=== PATIENT | female | born 1945 | race Caucasian/White ===

== ENCOUNTER 2016-08-17 11:32 | Emergency (ER) | payer MEDICARE, OTHER ==
--- NOTE | 2016-08-18 13:03 | ER PHYSICIAN DOCUMENTATION ---
Physician Documentation [facility] Name:Hina Jones Age:70 yrs Sex:Female :1945 Arrival Date:08/17/2016 Time:11:32 Bed2 Private MD:Dom Dugan ED, Chris Disposition: 08/17 11:46 Chart complete. cd Disposition: 08/17/16 11:46 Discharged to Home/Self Care. Impression: Abrasion. - Condition is Good. - Discharge Instructions: ABRASION. - Medical Reconciliation form form. - Follow up: Dom Dugan MD; When: As needed; Reason: Worsening of condition. - Problem is new. - Symptoms are resolved. HPI: 11:35 This 70 yrs old Female presents to ER via Private Vehicle with complaints of cd Right Elbow Abrasion. 11:35 The patient or guardian complains of an abrasion. The complaints affect the right cd elbow. Context: The problem was sustained at home, resulted from previous small hematoma was abraded and drained. No signs of infection.. Historical: - Allergies: No known drug Allergies; - Home Meds: 1. anti anxiety med 2. Ambien Oral - PMHx: ANXIETY; - PSHx: None; - Tetanus: < 10 years. - Ebola Screening: : Patient denies exposure to infectious person. Patient denies travel to an Ebola-affected area in the 21 days before illness onset. . - Social history: Smoking status: Patient uses tobacco products, current every day smoker. Patient/guardian denies using alcohol, marijuana. ROS: 11:53 MS/extremity: Positive for abrasion. cd 11:53 All other systems are negative. Exam: 11:53 Constitutional: The patient appears alert, awake. cd 11:53 Musculoskeletal/extremity: Extremities: grossly normal except: noted in the right elbow: abrasion, ROM: no acute changes, Circulation is intact in all extremities. Sensation intact. Vital Signs: 11:54 BP 155 / 86; Pulse 89; Pulse Ox 92% ; Pain 0/10; st MDM: 11:45 Patient medically screened. cd 11:46 Data reviewed: vital signs, nurses notes, old medical records, and as a result, I will cd discharge patient. Counseling: I had a detailed discussion with the patient and/or guardian regarding: the historical points, exam findings, and any diagnostic results supporting the discharge/admit diagnosis, the need for outpatient follow up, for a recheck, with the patient's primary care provider, to return to the emergency department if symptoms worsen or persist or if there are any questions or concerns that arise at home. 08/17 11:45 Order name: Wound Care; Complete Time: 11:55 cd Dispensed Medications: No medications were administered Signatures: Itzel Palacio RN RN st Daley, Chris, MD MD cd
--- NOTE | 2016-08-18 13:03 | ER NURSING DOCUMENTATION ---
Nurse's Notes [facility] Name:Hina Jones Age:70 yrs Sex:Female :1945 Arrival Date:08/17/2016 Time:11:32 Bed2 Private MD:Dom Dugan Diagnosis:Abrasion Presentation: 08/17 11:30 Presenting complaint: Patient states: pt has an aberration to the right elbow and is st afraid it might be infected. pt has had a blood blister there for months and yesterday she bumped something and it opened. Transition of care: Home. 11:30 Method Of Arrival: Private Vehicle st 11:39 Acuity: DYLAN 5 st Triage Assessment: 11:54 General: Appears in no apparent distress, Behavior is cooperative. Pain: Denies pain. st Injury Description: Abrasion sustained to right elbow Bruise sustained to right elbow. Historical: - Allergies: No known drug Allergies; - Home Meds: 1. anti anxiety med 2. Ambien Oral - PMHx: ANXIETY; - PSHx: None; - Tetanus: < 10 years. - Ebola Screening: : Patient denies exposure to infectious person. Patient denies travel to an Ebola-affected area in the 21 days before illness onset. . - Social history: Smoking status: Patient uses tobacco products, current every day smoker. Patient/guardian denies using alcohol, marijuana. Screenin:55 Infectious Disease Risk None. Abuse screen: Denies threats or abuse. Denies injuries st from another. pt feels safe at home. Nutritional screening: No deficits noted. Vital Signs: 11:54 BP 155 / 86; Pulse 89; Pulse Ox 92% ; Pain 0/10; st ED Course: 11:30 Valuables Remains with patient Patient has correct armband on for positive st identification. 11:33 Patient arrived in ED. ds 11:33 Dom Dugan MD is Private Physician. ds 11:39 Itzel Palacio RN is Primary Nurse. st 11:[address] 11:44 Fabiano Chapa MD is Attending Physician. cd 11:45 Dom Dugan MD is Referral Physician. cd 11:51 Wound care to abrasion, located on right elbow was dressed with bacitracin band aid. st Administered Medications: No medications were administered Outcome: 11:46 Discharge ordered by . cd 11:55 Discharged to home ambulatory. st 11:55 Condition: improved 11:55 Discharge instructions given to patient, Instructed on discharge instructions, follow up and referral plans. wound care. 11:55 No charge visit due to per Dr. Chapa request. st 11:57 Patient left the ED. st Signatures: Itzel Palacio, RN RN st Srot, Monika, Reg Reg Fabiano Tolbert MD MD cd
== END 2016-08-18 13:02 | disposition home or self-care (01) ==
LOC: ER 11:32
DX: S50.311A Abrasion of right elbow, initial encounter (principal); W22.8XXA Striking against or struck by other objects, initial encounter